=== PATIENT | female | born 1960 | race Caucasian/White ===

== ENCOUNTER 2019-07-05 21:18 | Emergency (ER) | payer OTHER ==
[~2019-07-05] VITALS: Ht 152.4 cm; Wt 70.8 kg
[2019-07-05 21:21] VITALS: Ht 152.4 cm; Wt 70.8 kg
[2019-07-05 23:13] VITALS: BP 150/65
== END 2019-07-05 23:13 | disposition home or self-care (01) ==
LOC: ED 21:18
DX: S90.112A Contusion of left great toe without damage to nail, initial encounter (principal); S90.122A Contusion of left lesser toe(s) without damage to nail, initial encounter; E11.9 Type 2 diabetes mellitus without complications; M19.90 Unspecified osteoarthritis, unspecified site; W20.8XXA Other cause of strike by thrown, projected or falling object, initial encounter; Y93.89 Activity, other specified; Y92.89 Other specified places as the place of occurrence of the external cause; Y99.8 Other external cause status